=== PATIENT | female | born 1960 | race Caucasian/White ===

== ENCOUNTER 2022-11-07 08:29 | Emergency (ER) | payer OTHER ==
[~2022-11-07] VITALS: Ht 165.1 cm; Wt 84.0 kg
[2022-11-07] VITALS (8 sets, daily range): BP systolic 103–131; BP diastolic 57–108
[2022-11-07] MEDS ORDERED: TRAZODONE50 MG PO (08:50)
[2022-11-07] MEDS ORDERED: HUMIRA10 MG/0.1 (08:55)
[2022-11-07 09:30] LABS: HEMATOCRIT 36.2 % (37.0-47.0); IMMATURE GRANULOCYTES 0.2 % (0.0-5.0); MEAN CELL VOLUME 88.7 fL CALC (80.0-100.0); MEAN CORPUSCULAR HGB 29.4 pG CALC (26.0-32.0); MEAN CORPUSCULAR HGB CONC 33.1 g/dL CAL (32.0-36.0); NEUT# 4.21 thou/uL (2.00-7.15); RED BLOOD COUNT 4.08 mill/uL (4.20-5.60); RED CELL DISTRI WIDTH 11.8 % (11.5-15.5)
[2022-11-07 09:42] LABS: ALBUMIN 4.2 g/dL (3.2-5.0); ALKALINE PHOSPHATASE 105 u/l (38-126); ANION GAP 9 (6-22 (CALC)); BILIRUBIN, TOTAL 0.4 mg/dL (0.0-1.4); BUN 7 mg/dL (8-23); BUN/CREATININE RATIO 8 (12-20 (CALC)); CARBON DIOXIDE 28 mmol/l (22-30); CHLORIDE 108 mmol/l (95-108); CREATININE 0.8 mg/dL (0.5-1.0); GFR FOR AFR.AMER. > 60 ML/MIN (>=60 (CALC)); GFR OTHER RACES > 60 ML/MIN (>=60 (CALC)); POTASSIUM 4.1 mmol/l (3.5-5.1); SGOT/AST 33 u/l (9-36); SODIUM 140 mmol/l (137-146); TOTAL PROTEIN 7.2 g/dL (6.3-8.2)
[2022-11-07] MEDS ORDERED: FLONASE AL50 MCG/ACT (11:09)
[2022-11-07] MEDS ORDERED: NEBULIZER KIT/TUBING PO (11:09)
[2022-11-07] MEDS ORDERED: ALL DAY10 MG PO (11:09)
[2022-11-07] MEDS ORDERED: PREDNISONE50 MG PO (11:09)
[2022-11-07] MEDS ORDERED: ALBUTEROL108 MCG/AC PO (11:09)
== END 2022-11-07 11:29 | disposition home or self-care (01) | DRG 203 ==
LOC: ED 08:29
PROVIDERS: Family Medicine
DX: J45.901 Unspecified asthma with (acute) exacerbation (principal); Z20.822 Contact with and (suspected) exposure to COVID-19